=== PATIENT | female | born 2000 | race Hispanic/Latino ===

== ENCOUNTER 2023-01-23 19:23 | Emergency (ER) | payer MEDICAID ==
[2023-01-23] MEDS ORDERED: Sodium Chloride 0.9% 10 ML Syringe FLUSH PRN (19:40)
[2023-01-23 20:17] LABS: BASOPHILS ABSOLUTE AUTO 0.04 K/mm3 (0.01-0.08); BASOPHILS PERCENT AUTO 0.3 % (0.1-1.2); EOSINOPHILS ABSOLUTE AUTO 0.22 K/mm3 (0.04-0.36); EOSINOPHILS PERCENT AUTO 1.7 (0.7-5.8); HEMATOCRIT 23.3 % (34.1-44.9); IMMATURE GRAN ABSOLUTE AUTO 0.04 K/mm3 (0.00-0.10); IMMATURE GRAN PERCENT AUTO 0.3 % (<=1.0); LYMPHOCYTES ABSOLUTE AUTO 2.19 K/mm3 (1.18-3.74); LYMPHOCYTES PERCENT AUTO 16.6 % (19.3-51.7); MEAN CORPUSCULAR HEMOGLOBIN 19.5 pg (25.6-32.2); MEAN CORPUSCULAR HGB CONC 28.3 g/dl (32.2-35.5); MEAN CORPUSCULAR VOLUME 68.9 fl (79.4-94.8); MEAN PLATELET VOLUME 8.6 fl (9.4-12.3); MONOCYTES PERCENT AUTO 5.3 % (4.7-12.5); NEUTROPHILS PERCENT AUTO 75.8 % (34.0-71.1); PLATELET COUNT,PLT 457 K/mm3 (182-369); RED BLOOD CELL COUNT 3.38 M/mm3 (3.98-5.22); WHITE BLOOD CELL COUNT,WBC 13.19 K/mm3 (3.98-10.04)
[2023-01-23 20:22] LABS: HEMOGLOBIN 6.6 gm/dl (11.2-15.7)
[2023-01-23 20:44] LABS: A/G RATIO 0.7 (1-2); ALBUMIN 3.3 g/dl (3.4-5.0); ANION GAP 14.1 (5-15); BILIRUBIN TOTAL 0.5 mg/dL (0.2-1.0); BUN/CREATININE RATIO 13.3 (14-18); CREATININE 0.9 mg/dL (0.55-1.02); EST CRCL DRUG DOSING (CG) 79.73 mL/min; POTASSIUM,K 4.1 mEq/L (3.5-5.1); PROTEIN TOTAL,TP 8.3 g/dl (6.4-8.2)
[2023-01-23 22:39] LABS: SLIDE REVIEW ABNORMAL SMEAR
[2023-01-23] MEDS ORDERED: Sodium Chloride 0.9% 500 ML IV ONE (22:44)
[2023-01-24 02:32] LABS: HEMATOCRIT 27.7 % (34.1-44.9)
[2023-01-24 02:38] LABS: HEMOGLOBIN 8.3 gm/dl (11.2-15.7)
== END 2023-01-24 02:58 | disposition home or self-care (01) ==
LOC: JD.ED 19:23
DX: N93.8 Other specified abnormal uterine and vaginal bleeding (principal); D64.89 Other specified anemias; F17.210 Nicotine dependence, cigarettes, uncomplicated
CPT/HCPCS: 36415; 36430; 80053; 85014; 85018; 85025; 86850; 86900; 86901; 86922; 96360; 96361; 99284; A9270; J3490; J7040; P9016; 99283

== ENCOUNTER 2023-04-03 21:03 | Emergency (ER) | payer MEDICAID ==
[2023-04-03] MEDS ORDERED: Amoxicillin/Clavulanate K 875-125 MG Tab PO ONE (21:51)
== END 2023-04-03 22:13 | disposition home or self-care (01) ==
LOC: JD.ED 21:03
DX: H66.002 Acute suppurative otitis media without spontaneous rupture of ear drum, left ear (principal); Z72.0 Tobacco use
CPT/HCPCS: 99282; A9270; 99283

== ENCOUNTER 2023-08-23 00:24 | Emergency (ER) | payer MEDICAID ==
[2023-08-23 01:02] LABS: BASOPHILS ABSOLUTE AUTO 0.1 K/mm3 (0.0-0.2); BASOPHILS PERCENT AUTO 0.5 % (0.0-1.0); EOSINOPHILS ABSOLUTE AUTO 0.4 K/mm3 (0.0-0.4); EOSINOPHILS PERCENT AUTO 3.3 % (0.0-6.0); HEMATOCRIT 22.6 % (37.0-47.0); IMMATURE GRAN ABSOLUTE AUTO 0.08 K/mm3 (0.00-0.05); IMMATURE GRAN PERCENT AUTO 0.7 % (0.0-0.4); LYMPHOCYTES PERCENT AUTO 18.2 % (24.0-44.0); MEAN CORPUSCULAR HEMOGLOBIN 18.2 pg (28.0-32.0); MEAN CORPUSCULAR HGB CONC 28.3 g/dl (32.0-36.0); MEAN CORPUSCULAR VOLUME 64.2 fl (83.0-99.0); MEAN PLATELET VOLUME 8.6 fl (9.4-12.3); MONOCYTES ABSOLUTE AUTO 0.5 K/mm3 (0.0-0.8); MONOCYTES PERCENT AUTO 4.2 % (0.0-8.0); NEUTROPHILS PERCENT AUTO 73.1 % (41.0-71.0); NRBC ABSOLUTE 0.06 (0.00-0.02); NRBC PERCENT 0.5 % (0.0-0.2); PLATELET COUNT,PLT 472 K/mm3 (150-400); RED BLOOD CELL COUNT 3.52 M/mm3 (4.10-5.30); WHITE BLOOD CELL COUNT,WBC 10.97 K/mm3 (3.9-11.3)
[2023-08-23 01:05] LABS: HEMOGLOBIN 6.4 gm/dl (12.0-16.0)
[2023-08-23 01:24] LABS: A/G RATIO 0.6 (1-2); ALBUMIN 3.1 g/dl (3.4-5.0); ANION GAP 14.1 (5-15); BILIRUBIN TOTAL 0.5 mg/dL (0.2-1.0); CALCIUM 8.7 mg/dL (8.5-10.1); EST CRCL DRUG DOSING (CG) 71.76 mL/min; POTASSIUM,K 3.1 mEq/L (3.5-5.1); PROTEIN TOTAL,TP 8.1 g/dl (6.4-8.2)
[2023-08-23 01:26] LABS: INR 1.07; PROTHROMBIN TIME 11.4 SECONDS (9.7-12.0); SLIDE REVIEW ABNORMAL SMEAR
[2023-08-23] MEDS ORDERED: Sodium Chloride 0.9% 500 ML ONE (02:29)
[2023-08-23] MEDS ORDERED: Sodium Chloride 0.9% 500 ML IV ONE (02:30)
[2023-08-23] MEDS ORDERED: Potassium Chloride 20 MEQ Tab.ER PO ONE (08:03)
[2023-08-23 08:18] LABS: BASOPHILS ABSOLUTE AUTO 0.1 K/mm3 (0.0-0.2); BASOPHILS PERCENT AUTO 0.5 % (0.0-1.0); EOSINOPHILS ABSOLUTE AUTO 0.3 K/mm3 (0.0-0.4); EOSINOPHILS PERCENT AUTO 2.8 % (0.0-6.0); HEMATOCRIT 25.8 % (37.0-47.0); HEMOGLOBIN 7.7 gm/dl (12.0-16.0); IMMATURE GRAN ABSOLUTE AUTO 0.04 K/mm3 (0.00-0.05); IMMATURE GRAN PERCENT AUTO 0.4 % (0.0-0.4); LYMPHOCYTES ABSOLUTE AUTO 2.1 K/mm3 (1.0-4.8); LYMPHOCYTES PERCENT AUTO 20.6 % (24.0-44.0); MEAN CORPUSCULAR HEMOGLOBIN 19.9 pg (28.0-32.0); MEAN CORPUSCULAR HGB CONC 29.8 g/dl (32.0-36.0); MEAN CORPUSCULAR VOLUME 66.7 fl (83.0-99.0); MEAN PLATELET VOLUME 8.6 fl (9.4-12.3); MONOCYTES ABSOLUTE AUTO 0.5 K/mm3 (0.0-0.8); MONOCYTES PERCENT AUTO 5.2 % (0.0-8.0); NEUTROPHILS PERCENT AUTO 70.5 % (41.0-71.0); NRBC ABSOLUTE 0.03 (0.00-0.02); NRBC PERCENT 0.3 % (0.0-0.2); PLATELET COUNT,PLT 414 K/mm3 (150-400); RED BLOOD CELL COUNT 3.87 M/mm3 (4.10-5.30); WHITE BLOOD CELL COUNT,WBC 9.95 K/mm3 (3.9-11.3)
[2023-08-23 08:49] LABS: SLIDE REVIEW ABNORMAL SMEAR
== END 2023-08-23 10:00 | disposition home or self-care (01) ==
LOC: JD.ED 00:24
DX: E87.6 Hypokalemia (principal); N92.1 Excessive and frequent menstruation with irregular cycle; D64.89 Other specified anemias
CPT/HCPCS: 36415; 36430; 80053; 84703; 85025; 85610; 86850; 86900; 86901; 86922; 99284; A9270; J7030; P9016; 99283

== ENCOUNTER 2025-03-02 16:52 | Emergency (ER) | payer OTHER ==
[2025-03-02 18:07] LABS: BASOPHILS PERCENT AUTO 0.4 % (0.0-1.0); EOSINOPHILS ABSOLUTE AUTO 0.2 K/mm3 (0.0-0.4); HEMATOCRIT 22.8 % (37.0-47.0); IMMATURE GRAN ABSOLUTE AUTO 0.08 K/mm3 (0.00-0.05); IMMATURE GRAN PERCENT AUTO 0.8 % (0.0-0.4); LYMPHOCYTES ABSOLUTE AUTO 1.7 K/mm3 (1.0-4.8); LYMPHOCYTES PERCENT AUTO 17.5 % (24.0-44.0); MEAN CORPUSCULAR HGB CONC 28.1 g/dl (32.0-36.0); MEAN CORPUSCULAR VOLUME 67.7 fl (83.0-99.0); MEAN PLATELET VOLUME 8.8 fl (9.4-12.3); MONOCYTES ABSOLUTE AUTO 0.5 K/mm3 (0.0-0.8); MONOCYTES PERCENT AUTO 5.2 % (0.0-8.0); NEUTROPHILS ABSOLUTE AUTO 7.3 K/mm3 (1.8-7.7); NEUTROPHILS PERCENT AUTO 74.1 % (41.0-71.0); NRBC ABSOLUTE 0.04 (0.00-0.02); NRBC PERCENT 0.4 % (0.0-0.2); PLATELET COUNT,PLT 361 K/mm3 (150-400); RED BLOOD CELL COUNT 3.37 M/mm3 (4.10-5.30); WHITE BLOOD CELL COUNT,WBC 9.81 K/mm3 (3.9-11.3)
[2025-03-02 18:13] LABS: PROTHROMBIN TIME 10.6 SECONDS (9.7-12.0)
[2025-03-02 18:19] LABS: HEMOGLOBIN 6.4 gm/dl (12.0-16.0)
[2025-03-02 18:22] LABS: A/G RATIO 0.7 (1-2); ALBUMIN 3.1 g/dl (3.4-5.0); ANION GAP 10.9 (5-15); BILIRUBIN TOTAL 0.4 mg/dL (0.2-1.0); CALCIUM 8.6 mg/dL (8.5-10.1); EST CRCL DRUG DOSING (CG) 70.52 mL/min; MAGNESIUM 1.9 mg/dL (1.8-2.4); POTASSIUM,K 3.9 mEq/L (3.5-5.1); PROTEIN TOTAL,TP 7.7 g/dl (6.4-8.2)
[2025-03-02] MEDS: Sodium Chloride 0.9% 1,000 ML IV SCH (19:26)
[2025-03-02] MEDS: Sodium Chloride 0.9% 10 ML Syringe FLUSH STA (21:13)
[2025-03-02 23:53] LABS: BARBITURATE SCREEN,URINE NEGATIVE (CUTOFF=200); BENZODIAZEPINES SCREEN,URINE NEGATIVE (CUTOFF=150); BUPRENORPHINE SCREEN,URINE NEGATIVE (CUTOFF=10); METHADONE SCREEN, URINE NEGATIVE (CUTOFF=200); METHAMPHETAMINES SCREEN, URINE NEGATIVE (CUTOFF=500); OXYCODONE SCREEN,URINE NEGATIVE (CUT0FF=100); THC SCREEN,URINE 20 NG/ML PRESUMPTIVE POSITIVE (CUTOFF=50)
[2025-03-02 23:54] LABS: AMPHETAMINES SCREEN, URINE NEGATIVE (CUTOFF=500)
== END 2025-03-03 02:45 | disposition home or self-care (01) ==
LOC: JD.ED 16:52
DX: N92.1 Excessive and frequent menstruation with irregular cycle (principal); D64.89 Other specified anemias; Z79.899 Other long term (current) drug therapy
CPT/HCPCS: 36415; 36430; 80053; 80306; 81025; 82550; 83735; 85025; 85610; 86850; 86900; 86901; 86922; 99284; J7030; P9016; 99283